=== PATIENT | female | born 1945 | race Caucasian/White ===

== ENCOUNTER → 2020-04-29 17:50 | Outpatient (CLI) | payer BC, SELFPAY ==
[2020-04-29 18:10] LABS: Anion Gap 11.7 mEq/L (5-15); Blood Urea Nitrogen 29 mg/dl (7-17); Calcium 9.6 mg/dl (8.4-10.2); Carbon Dioxide 26 mmol/L (22.0-30.0); Chloride 106 mmol/L (98-107); Estimated Glomerular Filt Rate 71 ml/min (>60); GFR (African American) 85 ML/MIN (>60); Glucose 265 mg/dl (74-100); Potassium 4.7 mmoL/L (3.5-5.1); Sodium 139 mmol/L (136-145)
[2020-04-29 18:23] LABS: Hemoglobin A1C 10.2 % (4.0-6.0)
== END ==
PROVIDERS: Visit Provider Family Medicine
DX: E87.2 Acidosis (principal)
CPT/HCPCS: 80048; 83036

== ENCOUNTER 2025-06-08 16:59 | Outpatient (CLI) | payer BC, SELFPAY ==
--- OUTSIDE RECORDS SUMMARY | 2025-05-01 11:00 | XMS_ITS | Encounter Summary ---
Author Organization [place] [address] Care Team Providers Care Cable Reeler Name Role Phone Christopher Gordon MD Primary Care Provider Reason for Referral * Biopsy Procedure (Routine) - Closed Specialty Diagnoses / Procedures Referred By Gabino braun Referred To Contact Diagnoses Inflamed seborrheic keratosis Other disturbances of skin sensation Procedures [place] DESTRUCTION BENIGN LESIONS 15/> Kyree Avery MD [address] [place] [address] Phone: tel: fax: Referral ID Status Reason Start Date Expiration Date Visits Re quested Visits Authorized [id number] Closed 05/01/2025 05/01/2026 1 1 * In Office Procedure (Routine) - Authorization Not Needed Specialty Diagnoses / Procedures Referred By Gabino braun Referred To Contact Dermatology Diagnoses BCC (basal cell carcinoma), back Procedures [place] EXCISION MAL LESION TRUNK/ARM/LEG 1.1-2.0 CM [place] DESTRUCTION BENIGN LESIONS 15/> Kyree Avery MD [address] [place] [address] Phone: tel: fax: Kyree Avery MD [address] [place] [address] Phone: tel: fax: Referral ID Status Reason Start Date Expiration Date Visits Requested Visits Authorized [id number] Authorization Not Needed 05/01/2025 05/01/2026 1 1 Reason for Visit * Reason Comments Follow-up * In Office Procedure (Routine) - Authorization Not Needed Specialty Diagnoses / Procedures Referred By Contac t Referred To Contact Dermatology Diagnoses BCC (basal cell carcinoma), back Procedures [place] EXCISION MAL LESION TRUNK/ARM/LEG 1.1-2.0 CM [place] DESTRUCTION BENIGN LESIONS 15/> Kyree Avery MD [address] [facility] [address] [place] [address] Phone: tel: fax: Kyree Avery MD [address] [place] [address] [place] [address] Phone: tel: fax: Referral ID Status Reason Start Date Expiration Date Visits Requested Visits Authorized [id number] Authorization Not Needed 05/01/2025 05/01/2026 1 1 Encounter Details Date Type Department Care Team (Latest Contact Info) Description 05/01/2025 11:00 AM EDT Office Visit [facility] [address] [place] [id number] Kyree Avery MD [address] [place] [address] [place] [address] BCC (basal cell carcinoma), let mid back (Primary Dx); Neoplasm of uncertain behavior; Inflamed seborrheic keratosis; Other disturbances of skin sensation Social History Tobacco Use Types Packs/Day Years Used Date Smoking Tobacco: Never Smokeless Tobacco: Never Alcohol Use Standard Drinks/Week Comments Not Currently 0 (1 standard drink = 0.6 oz pur e alcohol) [facility] Utilities Answer Date Recorded In the past 12 months has [employer], gas, oil, or water company threatened to shut off services in your home? No 02/19/2024 Overall Financial Resource Strain (CARDIA) Answe r Date Recorded How hard is it for you to pa y for the very basics like food, housing, medical care, and heating? Not very hard 02/19/2024 PHQ-2 Answer Date Recorded PHQ-2 Total Score 0 02/19/2024 [facility] - Occupational Stress Questionnaire Answer Date Recorded Do you feel stress - tense, restless, nervous, or anxious, or unable to sleep at night because your mind is troubled all the time - these days? Only a little 02/19/2024 Exercise Vital Sign Answer Date Recorde d On average, how many days pe r week do you engage in moderate to strenuous exercise (like a brisk walk)? 0 days 02/19/2024 On average, how many minutes do you engage in exercise at this level? 0 min 02/19/2024 Hunger Vital Sign Answer Date Recorded Within the past 12 months, y ou worried that your food would run out before you got the money to buy more. Never true 02/19/20 24 Within the past 12 months, t he food you bought just didn't last and you didn't have money to get more. Never true 02/19/2024 [facility] IP Transportation Answer D ate Recorded In the past 12 months, has l ack of reliable transportation kept you from medical appointments, meetings, work or from getting things needed for daily living? No 02/19/2024 Comments No Sex and Gender Information Value Date Recorded Sex Assigned at Not on file Legal Sex Female 11:49 PM EDT Gender Identity Not on file Sexual Orientation Not on file documented as of this encounter Functional Status * Is the person deaf or does he/she have serious difficulty hearing? Answer Date of Assessment Author No 09/20/2022 4:40 PM EST Diana Riley RN * Is the person blind or does he/she have serious difficulty seeing even when wearing glasses? Answer Date of Assessment Author No 09/20/2022 4:40 PM Diana Ruiz RN * Does this person have serious difficulty walking or climbing stairs? Answer Date of Assessment Author Yes 09/20/2022 4:40 PM EST Diana Riley RN * Does this person have difficulty dressing or bathing? Answer Date of Assessment Author Yes 09/20/2022 4:40 PM Diana Ruiz RN * Because of a physical, mental or emotional condition, does this person have difficulty doing errands alone such as visiting a doctor's office or shopping? Answer Date of Assessment Author Yes 09/20/2022 4:40 PM Diana Ruiz RN documented as of this encounter Mental Status * Because of a physical, mental or emotional condition, does this person have serious difficulty concentrating, remembering or making decisions? Answer Entry Date Author Yes 09/20/2022 4:40 PM Diana Ruiz RN documented in this encounter Progress Notes * Kyree Avery MD - 05/01/2025 11:00 AM EDT Images from the original note were not included. PROCEDURE Excision of malignant skin lesion with layered closure Surgeon: Kyree Avery MD content assistant: Samina Coleman MA Diagnosis: BCC Location: left mid back Date of Bx: 03/30/2025 Size (cm): 1.1 cm Margins (cm): 4 mm Size + Margins (cm): 1.9cm ? I explained the diagnosis to the patient and recommend an excision of the lesion for diagnosis and/or treatment. I explained treatment options and risks of the procedure to the patient and obtained written consent. Potential complications include, but are not limited to: scar, bleeding, infection, incomplete removal, nerve damage, allergic reaction to anesthesia, reaction to epinephrine, recurrence. ? Type of anesthesia 1% lidocaine with epinephrine Volume injected: 9 mL (cc) ? The patient was brought into room, prepared and draped sterilely in the usual manner, lesion to be excised was photographed, and anesthesia was administered by local infiltration. A fusiform shape was drawn around the lesion, and the margins were incised to the level of the subcutaneous fat with a number 15 scalpel. The tissue was removed with sharp and blunt dissection. The lateral margins of the resulting defect were undermined with sharp and blunt dissection and hemostasis was achieved with electrocautery. The deeper layers of the defect including subcutaneous fat had to be approximated toreduce tension on the suture line. Layered wound closure was performed. The wound was cleaned with saline, dried, petrolatum ointment and a sterile gauze bandage were applied and the wound covered with a pressure dressing. The excised tissue was sent for histopathologic evaluation. The patient was given detailed verbal and written instructions on post-operative care. ? Suture used to close dermal and adipose layers: 3-0 Vicryl Suture used to approximate epidermis: 4-0 prolene, running horizontal mattress Final wound length: 4.5 cm In the event of a suspected infection the patient is to call the clinic or data integration architect commissioner public works after hours. Neoplasm of unspecified behavior of skin, soft tissue: B: Right upper abdomen - Ddx: Isk vs wart - Number of biopsies: 1 - additional care to depend on final path report PROCEDURE: Tangential shave biopsy x 1 Consent obtained. Side effects reviewed including but not limited to: scar, bleeding, infection, incomplete removal, allergic reaction to lidocaine, pain?.? Documentation: photo taken for chart Prep: isopropyl alcohol swab ?Anesthesia: 1% Lidocaine with epinephrine Shave?: Dermablade Hemostasis: Drysol cautery Dressing: Petrolatum and bandaid Wound care instructions provided ? Inflamed seborrheic keratoses Exam: erythematous and waxy flesh colored stuck on papules on the back, abdomen, breasts and right cheek - Associated with: pruritus - given symptomatic, patient opts for tx today with LN2. Procedure: Liquid Nitrogen cryotherapy Number of lesions treated: 20 Indication for treatment: lesions are inflamed and itchy Risks include but not limited to erythema, blistering, hyperpigmentation, hypopigmentation, scar, incomplete removal, need for multiple treatments, and recurrence. Verbal consent obtained, local wound care reviewed. ? Kyree Avery MD, FAAD documented in this encounter Miscellaneous Notes * Patient Instructions - Melissa Rizvi MA - 05/01/2025 11:00 AM EDT Immediately After Surgery Most surgeries have minimal downtime and pain, however if you feel ill or dizzy we recommend that you have someone escort you home and stay with you. Wound Care After the operation, your stitched wound will be covered and protected with a thin layer of vasoline and a bandage. Do not remove the bandage for the first 24 hours after surgery. Your bandage will help keep your wound clean, moist, and help prevent infection and bleeding. After 24 hours, gently remove the bandage and clean the area with a mild soap and water. Do not spray water directly into the wound. Rather, gently run water over the wound to rinse off soap. Pat the area dry. If Steri-strips were placed, do not remove the Steri-Strips underneath the compression dressing. Our staff will remove the Steri-Strips when you return to have your sutures removed. Do not be alarmedif the Steri-Strips fall off. Daily apply a thin layer of ointment (Vaseline or Aquaphor) and re-bandage the area with a non-adhesive bandage, which can be obtain at a pharmacy until you return for suture removal. Activity Please keep movement of the surgical site to a minimum for the first 2 weeks after surgery. Wounds only have approximately 5% of their strength one week after surgery. Therefore, care must betaken not to stretch open the surgical site. Avoid stretching or overusing the surgical area for 3 weeks and then slowly start to increase activity to the affected area. If you have had surgery in the head and/or neck region, we recommend you keep your head elevated bysleeping on multiple pillows and/or on a recliner tilted at 45 degrees for the first 2 weeks following surgery. Reactions Allergic reactions to the bandage/tape material and antibiotic ointments are extremely common and are most often confused with infections. 48-72 hours after surgery wound becomes red and very itchy and can develop small blisters Stop the antibiotic ointment and change to plain Vaseline ointment. Remove your strips and use a bandage that is made from a different material than the one you???ve been using. Bleeding Occasionally, wounds bleed. If there is any bleeding, it is usually just a drop every few minutes from the edge of the dressing. You can wipe it away and apply pressure to the compression dressing, which absorbs blood like a sponge. If the wound continues to bleed actively, apply direct, firm and continuous pressure to a gauze pad for 20 minutes. This will stop the bleeding. If it doesn???t, please call the office. If you know you are prone to bleeding, obtain QR anticoagulation powder from [employer] or [employer] before your surgery. This powder stops most minor bleeds immediately and will save you atrip to our office. Medication Do not take aspirin 2 days after surgery, unless prescribed by your medical doctor. Do not stop taking any of your prescribed medications including blood thinners. Depending on the surgical site, you may be required to take oral antibiotics after surgery. Infection Even though exhaustive efforts are taken to eliminate infections, occasionally wounds do become infected. Infections are very rare before post-operative day 5. Please note that a little redness around the wound is normal. However, if the skin around the wound becomes increasingly redder, swollen, hot, and painful, you may have an infection. If this occurs, please call the office. Pain Mild discomfort and swelling can occur during the healing process. This usually happens 6-24 hours after surgery. You may take extra-strenght Tylenol if needed. We do not prescribe narcotics for paincontrol. Suture Removal Suture removal is usually a painless process but some mild discomfort can be experienced. Please note that only the top sutures are removed. The deep sutures are usually absorbed by your body or extruded through the skin at a much later date. If your wounds feels ???bumpy?? after surgery, it???s because the deep sutures have not been absorbed yet. Grafts If you have been repaired using the skin graft you will have two separate wounds. One is the donor site (where skin is taken) and another is the recipient site. The recipient site will have a compression dressing that is sutured in place. This is called the ???bolster?? , you can not remove this bolster and should only apply some Aquaohor on top of it to make sure it???s not too dry (once every few days). It???s also recommended that you don???t get this bolster wet if possible. The donor site will need the same wound care as described above under ???Wound Care?? . What to expect after surgery Swelling and bruising Swelling and bruising are expected for any location. Nose, forehead and scalp will always cause extensive bruising that can be most severe around the eye but can also extend down to the cheek and neck area. Swelling can often be very severe around the eyelids to the point that one will have difficulty opening ones eyes. The bruise last for 7-12 days and swelling lasts for 1-3 days. Spitting Sutures Sometimes the deep sutures are not absorbed by your body but rather are extruded through the skin at a later date. This might present as a ???pimple?? or a ???white/purple tread?? on your skin and can be plucked out with a pair of clean tweezers. On occasion, a patient may have to come to the office for its removal. Spitting sutures are expected and are not considered a complication. Redness and bumpiness of scar Most scars will be red and bumpy about 3-10 weeks after the surgery. By about 6 months your scar will have matured, giving you a good idea about how it will look in the future. Scar It???s important to know that scars can be treated with different types of lasers. For instance, the V-BEAM vascular laser can be used to treat the redness associated with scars and improves impending texture irregularities. The resurfacing lasers can t also treat scar texture irregularities more ag gressively. Unfortunately, most scar treatments, including the use of lasers, are not covered by health insurance plans. documented in this encounter Plan of Treatment Scheduled Orders Name Type Priority Associated Diagnoses Orde r Schedule [place] TANGENTIAL BIOPSY SKIN SINGLE LESION [place] Charge Routine Neoplasm of uncertain behavior Ordered: 05/01/2025 [place] EXCISION MAL LESION TRUNK/ARM/LEG 1.1-2.0 CM [place] Charge Routine BCC (basal cell carcinoma), let mid back Ordered: 05/01/2025 [place] DESTRUCTION BENIGN LESIONS 15/> [place] Charge Routine Inflamed seborrheic keratosis Other disturbances of skin sensation Ordered: 05/01/2025 [place] REPAIR INTERMEDIATE S/A/T/E 2.6-7.5 CM [place] Charge Routine BCC (basal cell carcinoma), let mid back Ordered: 05/01/2025 documented as of this encounter Procedures Procedure Name Priority Date/Time Associated Diagnosis Comments DERMATOPATHOLOGY TISSUE SEND OUT REQUEST Routine 05/06/2025 1:23 PM EDT BCC (basal cell carcinoma), let mid back documented in this encounter Results * DERMATOPATHOLOGY TISSUE SEND OUT REQUEST (05/06/2025 1:23 PM EDT) Tissue Kyree Avery MD PATHOLOGY ORDERABLES Fi nal Result [facility] DERMATOPATHOLOGY [address] [place] [address] documented in this encounter Visit Diagnoses Diagnosis BCC (basal cell carcinoma), let mid back- Primary Neoplasm of uncertain behavior Neoplasm of uncertain behavior, site unspecified Inflamed seborrheic keratosis Other disturbances of skin sensation documented in this encounter Care Teams Cable Reeler Relationship Specialty Start Date End Date Christopher Gordon MD [address] [place] [address] PCP - General Family Medicine 09/19/22 documented as of this encounter
[2025-06-08 20:42] LABS: Hematocrit 35.5 % (37.0-47.0); Hemoglobin 11.4 g/dL (12.2-16.2); Immature Granulocytes % 0.3 %; Mean Corpuscular HGB Conc 32.1 g/dL (31.8-35.4); Mean Corpuscular Hemoglobin 28.3 pg (27.0-31.2); Mean Corpuscular Volume 88.1 fl (81-99); Nucleated Red Blood Cells % 0 %; Platelet Count 253 K/mm3 (142-424); Red Blood Count 4.03 M/mm3 (4.20-5.40); Red Cell Distribution Width-SD 43.8 fL; White Blood Count 6.1 K/mm3 (4.8-10.8)
[2025-06-09 04:39] LABS: Alanine Aminotransferase 15 U/L (12-78); Albumin Level 3.3 g/dl (3.5-5.0); Albumin/Globulin Ratio 1.3 (1.1-1.8); Alkaline Phosphatase 121 U/L (38-126); Anion Gap 15.7 mEq/L (5-15); Aspartate Amino Transferase 23 U/L (14-36); Bilirubin,Total 0.5 mg/dl (0.2-1.3); Blood Urea Nitrogen 29 mg/dl (7-17); Calcium 9.0 mg/dl (8.4-10.2); Carbon Dioxide 22 mmol/L (22.0-30.0); Chloride 107 mmol/L (98-107); Cholesterol 108 mg/dl (140-200); Creatinine,Serum 1.30 mg/dl (0.52-1.04); Estimated Glomerular Filt Rate 40 ml/min (>60); GFR (African American) 48 ML/MIN (>60); Globulin 2.6 g/dL (1.3-3.2); Glucose 156 mg/dl (74-100); HDL Cholesterol 42 mg/dl (40-60); Potassium 3.7 mmoL/L (3.5-5.1); Sodium 141 mmol/L (136-145); Total Protein,Serum 5.9 g/dl (6.3-8.2); Triglycerides 177 mg/dl (30-150)
[2025-06-09 05:09] LABS: Thyroid Stimulating Hormone 1.81 uIU/mL (0.465-4.68)
--- OUTSIDE RECORDS SUMMARY | 2025-06-09 13:17 | XMS_ITS | Encounter Summary ---
Author Organization [place] [address] Care Team Providers Care Energy Scheduler Name Role Phone Christopher Gordon MD Primary Care Provider [phone] Encounter Details Date Type Department Care Team (Latest Contact Info) Description 02/11/2025 Results Follow-Up [facility] [place] [address] [facility] [address] [place] [phone] Kyree Avery MD [address] [place] [address] [place] [address] DERMATOPATHOLOGY TISSUE SEND OUT REQUEST Social History Tobacco Use Types Packs/Day Years Used Date Smoking Tobacco: Never Smokeless Tobacco: Never Alcohol Use Standard Drinks/Week Comments Not Currently 0 (1 standard drink = 0.6 oz pur e alcohol) [facility] Utilities Answer Date Recorded In the past 12 months has [employer] electric, gas, oil, or water company threatened to shut off services in your home? No 02/19/2024 Overall Financial Resource Strain (CARDIA) Answe r Date Recorded How hard is it for you to pa y for the very basics like food, housing, medical care, and heating? Not very hard 02/19/2024 PHQ-2 Answer Date Recorded PHQ-2 Total Score 0 02/19/2024 [facility] [place] of Occupat ional Health - Occupational Stress Questionnaire Answer Date Recorded [...] money to get more. Never true 02/19/2024 [facility] IP Transportation Answer D ate Recorded In [...] 09/20/2022 4:40 PM Diana Ruiz RN * Is the person blind or does he/she have serious difficulty seeing even when wearing glasses? Answer Date of Assessment Author No 09/20/2022 4:40 PM Diana Ruiz RN * Does this person have serious difficulty walking or climbing stairs? Answer Date of Assessment Author Yes 09/20/2022 4:40 PM Diana Ruiz RN * Does this person have difficulty [...] Entry Date Author Yes 09/20/2022 4:40 PM EST See, Diana Strauss RN documented in this encounter Plan of Treatment Not on file documented as of this encounter Visit Diagnoses Not on filedocumented in this encounter Care Teams Energy Scheduler Relationship Specialty Start Date End Date Christopher Gordon MD [address] [place] [address] PCP - General Family Medicine 09/19/22 documented as of this encounter
--- OUTSIDE RECORDS SUMMARY | 2025-06-09 13:18 | XMS_ITS | Encounter Summary ---
Author Organization [place] [address] Care Team Providers Care Environmental Services Project Manager Name Role Phone Christopher Gordon MD Primary Care Provider [phone] Encounter Details Date Type Department Care Team (Latest Contact Info) Description 02/27/2025 Results Follow-Up [facility] [place] [address] [facility] [address] [place] [phone] Kyree Avery MD [address] [place] [address] [place] [address] DERMATOPATHOLOGY TISSUE SEND OUT REQUEST Social History Tobacco Use Types Packs/Day Years Used Date Smoking Tobacco: Never Smokeless Tobacco: Never Alcohol Use Standard Drinks/Week Comments Not Currently 0 (1 standard drink = 0.6 oz pur e alcohol) [facility] Utilities Answer Date Recorded In the past 12 months has [employer] electric, gas, oil, or water company threatened to shut off services in your home? No 02/19/2024 Overall Financial Resource Strain (CARDIA) Answe r Date Recorded How hard is it for you to pa y for the very basics like food, housing, medical care, and heating? Not very hard 02/19/2024 PHQ-2 Answer Date Recorded PHQ-2 Total Score 0 02/19/2024 [facility] [place] of Occupat ional Health - Occupational Stress [...] money to get more. Never true 02/19/2024 [facility] IP Transportation Answer D ate Recorded [...] on filedocumented in this encounter Care Teams Environmental Services Project Manager Relationship Specialty Start Date End Date Christopher Gordon MD [address] [facility] [address] [place] [address] PCP - General Family Medicine 09/19/22 documented as of this encounter
--- OUTSIDE RECORDS SUMMARY | 2025-06-09 13:20 | XMS_ITS | Encounter Summary ---
Author Organization [facility] [place] [address] Care Team Providers Care Scientific Software Engineer Name Role Phone Christopher Gordon MD Primary Care Provider [phone] Encounter Details Date Type Department Care Team (Latest Contact Info) Description 04/30/2025 Travel Social History Tobacco Use Types Packs/Day Years Used Date Smoking Tobacco: Never Smokeless Tobacco: Never Alcohol Use Standard Drinks/Week Comments Not Currently 0 (1 standard drink = 0.6 oz pur e alcohol) [facility] Utilities Answer Date Recorded In the past 12 months has e electric, gas, oil, or water company threatened to shut off services in your home? No 02/19/2024 Overall Financial Resource Strain (CARDIA) Answe r Date Recorded How hard is it for you to pa y for the very basics like food, housing, medical care, and heating? Not very hard 02/19/2024 PHQ-2 Answer Date Recorded PHQ-2 Total Score 0 02/19/2024 [facility] [place] of Occupat ional Health - Occupational Stress [...] money to get more. Never true 02/19/2024 [facility] IP Transportation Answer D ate Recorded In [...] Diana Ruiz RN documented in this encounter Plan of Treatment Not on file documented as of this encounter Visit Diagnoses Not on filedocumented in this encounter Care Teams Scientific Software Engineer Relationship Specialty Start Date End Date Christopher Gordon MD [address] [place] [address] PCP - General Family Medicine 09/19/22 documented as of this encounter
--- OUTSIDE RECORDS SUMMARY | 2025-06-09 13:20 | XMS_ITS | Encounter Summary ---
Author Organization [place] [address] Care Team Providers Care Fish Boning Machine Feeder Name Role Phone Santo Coyle MD, Harold Primary Care Provider + Christopher Gordon MD Primary Care Provider [phone] Encounter Details Date Type Department Care Team (Late st Contact Info) Description 02/02/2016 Orders Only SEP Gastro [facility] [address] [facility] [address] [place] [id number] Donte Montenegro MD Social History Tobacco Use Types Packs/Day Years Used Date Smoking Tobacco: Never Smokeless Tobacco: Never Alcohol Use Standard Drinks/Week Comments Yes 0 (1 standard drink = 0.6 oz pur e alcohol) rare- yearly Comments No Sex and Gender Information Value Date Recorded Sex Assigned at Not on file Legal Sex Female 11:49 PM EDT Gender Identity Not on file Sexual Orientation Not on file documented as of this encounter Plan of Treatment Not on file documented as of this encounter Procedures Procedure Name Priority Date/Time Associated Diagnosis Comments GMED COLONOSCOPY Routine 02/02/2016 12:4 0 PM EDT documented in this encounter Results * GMED COLONOSCOPY (02/02/2016 12:40 PM EDT) 02/02/2016 12:4 0 PM EDT Impressions [facility] - 02/02/2016 1:25 PM EDT Polyp (5 mm) in the cecum. (Polypectomy). Polyp (5 mm) in the hepatic flexure. (Polypectomy). Polyps (6 mm) in the transverse colon. (Polypectomy). Polyp (5 mm) in the descending colon. (Polypectomy). Polyp (6 mm) in the sigmoid colon. (Polypectomy). Atrophy in the descending colon and sigmoid colon. (Biopsy). Moderate diverticulosis of the sigmoid colon. Plan: Interval to next Colonoscopy will be based upon histology of polyp. This section is an excerpt of the full report. us Donte Montenegro MD GI PROCEDURE ORDERABLES Final R esult [facility] [address] [place] [address] documented in this encounter Visit Diagnoses Not on filedocumented in this encounter Additional Health Concerns Infection Onset Date Last Indicated Resolved Time R/O COVID-19 09/19/2022 09/19/2022 09/20/2022 1:40 AM EST COVID-19 09/20/2022 09/20/2022 10/10/2022 10:1 2 PM EST documented as of this encounter Care Teams Fish Boning Machine Feeder Relationship Specialty Start Date End Date Willem Blanchard MD [address] [place] [id number] PCP - General Family Medicine 10/05/11 09/18/22 Christopher Gordon MD [address] [facility] [place] [address] PCP - General Family Medicine 09/19/22 documented as of this encounter
--- OUTSIDE RECORDS SUMMARY | 2025-06-09 13:20 | XMS_ITS | Encounter Summary ---
Author Organization [place] [address] Care Team Providers Care Marine Steam Fitter Name Role Phone Christopher Gordon MD Primary Care Provider [phone] Encounter Details Date Type Department Care Team (Latest Contact Info) Description 04/03/2025 Results Follow-Up SEP Dermatology [place] [address] [facility] [address] [place] [phone] Kyree Avery MD [address] [place] [address] [place] [address] DERMATOPATHOLOGY TISSUE SEND OUT REQUEST Social History Tobacco Use Types Packs/Day Years Used Date Smoking Tobacco: Never Smokeless Tobacco: Never Alcohol Use Standard Drinks/Week Comments Not Currently 0 (1 standard drink = 0.6 oz pur e alcohol) [facility] Utilities Answer Date Recorded In the past 12 months has [employer] electric, gas, oil, or water company threatened to shut off services in your home? No 02/19/2024 Overall Financial Resource Strain (CARDIA) Answe r Date Recorded How hard is it for you to pa y for the very basics like food, housing, medical care, and heating? Not very hard 02/19/2024 PHQ-2 Answer Date Recorded PHQ-2 Total Score 0 02/19/2024 [facility] [place] of Occupat ional Health - Occupational Stress [...] money to get more. Never true 02/19/2024 [facility] IP Transportation Answer D ate Recorded In [...] Diana Strauss RN documented in this encounter Progress Notes * Kyree Avery MD - 04/03/2025 8:05 AM EDT Please let patient know: biopsy demonstrated another basal cell skin cancer (the same type as we have previously removed, but this one is smaller). This is a non-melanoma skin cancer that should be treated to prevent it from enlarging in the future and causing more problems. I recommend excision ofthe area (surgical removal of the remaining skin cancer), which can be done in the office, under local numbing (there will be stitches). Schedule for excision on procedure day in the AM 30min documented in this encounter Plan of Treatment Not on file documented as of this encounter Visit Diagnoses Not on filedocumented in this encounter Care Teams Marine Steam Fitter Relationship Specialty Start Date End Date Christopher Gordon MD [address] [facility] [place] [address] PCP - General Family Medicine 09/19/22 documented as of this encounter
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
== END 2025-06-08 23:59 | disposition home or self-care (01) ==
LOC: LAB.DROPOF 06-09 12:49
PROVIDERS: PCP Family Medicine; Visit Provider Family Medicine
DX: I25.10 Atherosclerotic heart disease of native coronary artery without angina pectoris (principal); E11.9 Type 2 diabetes mellitus without complications; I10 Essential (primary) hypertension
CPT/HCPCS: 80053; 80061; 84443; 85025